=== PATIENT | male | born 1960 | race Hispanic/Latino ===

== ENCOUNTER 2019-01-05 10:46 | Emergency (ER) | payer BC ==
[2019-01-05 11:59] LABS: Absolute Lymphocytes (CBC) 2.4 K/uL (0.7-4.9); Basophils % 0.6 % (0-1.3); Hematocrit 37.1 % (39.6-49.0); Lymphocytes % 25.9 % (15.3-44.8); MPV 7.8 fL (7.6-11.3)
[2019-01-05 12:13] LABS: ALT/SGPT 46 U/L (12-78); AST/SGOT 29 U/L (15-37); Albumin 3.7 g/dL (3.4-5.0); Alkaline Phosphatase 78 U/L (45-117); BUN Blood Urea Nitrogen 15 mg/dL (7-18); Bicarbonate 27 mmol/L (21-32); Bilirubin Direct < 0.1 mg/dL (0-0.2); Bilirubin Total 0.3 mg/dL (0.2-1.0); Glucose Level 89 mg/dL (74-106); NT PRO-BNP 476 pg/mL (<125); Potassium 3.8 mmol/L (3.5-5.1); Protein, Total 7.4 g/dL (6.4-8.2); Sodium Level 141 mmol/L (136-145); Troponin (Emerg Dept Use Only) < 0.02 ng/mL (0.0-0.045)
--- NOTE | 2019-01-05 12:31 | ER ---
Nurse's Notes [facility] Name: Daniel Meneses Jr Age: 58 yrs Sex: Male : 1960 Arrival Date: 01/05/2019 Time: 10:47 Bed 8 Private MD: Dinora Mathur H Diagnosis: Chest pain, unspecified Presentation: 01/05 11:17 Presenting complaint: Anterior chest pain x 3 days. Pain is worse with movement and hb deep breathing. Denies cough/SOB/fever. Transition of care: patient was not received from another setting of care. Onset of symptoms was January 03, 2019. Risk Assessment: Do you want to hurt yourself or someone else? Patient reports no desire to harm self or others. Care prior to arrival: None. 11:17 Method Of Arrival: Ambulatory hb 11:17 Acuity: [place] 3 hb 12:51 Initial Sepsis Screen: Does the patient meet any 2 criteria? No. Patient's initial bp sepsis screen is negative. Does the patient have a suspected source of infection? No. Patient's initial sepsis screen is negative. Triage Assessment: 11:32 General: Appears in no apparent distress. comfortable, Behavior is calm, cooperative, bp appropriate for age. Pain: Complains of pain in chest. EENT: No deficits noted. Neuro: No deficits noted. Cardiovascular: Rhythm is sinus bradycardia. Respiratory: No deficits noted. GI: No signs and/or symptoms were reported involving the gastrointestinal system. : No signs and/or symptoms were reported regarding the genitourinary system. Derm: No deficits noted. Musculoskeletal: No deficits noted. Historical: - Allergies: 11:23 Iodine; hb - Home Meds: 11:23 lisinopril Oral [Active]; Atenolol Oral [Active]; hb - Immunization history:: Adult Immunizations up to date. - Social history:: Smoking status: Patient/guardian denies using tobacco. - Ebola Screening: : No symptoms or risks identified at this time. - Family history:: not pertinent. - Hospitalizations: : No recent hospitalization is reported. Screenin:33 Abuse screen: Denies threats or abuse. Denies injuries from another. Nutritional bp screening: No deficits noted. Tuberculosis screening: No symptoms or risk factors identified. Fall Risk None identified. Assessment: 11:33 General: SEE TRIAGE NOTE. bp 12:27 Reassessment: PT RETURNED FROM RADIOLOGY. ALL CURRENT ORDERS COMPLETED. bp 12:48 Reassessment: PT D/C HOME AMBULATORY WITH FAMILY, DX WITH UNSPECIFIC CHEST PAIN. bp Vital Signs: 11:23 BP 188 / 82; Pulse 56; Resp 16; Temp 98.8; Pulse Ox 100% on R/A; Weight 79.83 kg; hb Height 5 ft. 8 in. (172.72 cm); Pain 8/10; 12:28 BP 126 / 74; Pulse 52; Resp 16; Pulse Ox 100% ; bp 11:23 Body Mass Index 26.76 (79.83 kg, 172.72 cm) hb ED Course: 10:47 Patient arrived in ED. as 10:48 Dinora Mathur DO is Private Physician. as 11:23 Triage completed. hb 11:23 Arm band placed on. hb 11:26 Himanshu Dhillon MD is Attending Physician. rn 11:32 Danilo Strickland RN is Primary Nurse. bp 11:33 Patient has correct armband on for positive identification. Bed in low position. Call bp light in reach. Side rails up X2. satellite project site monitor on. Pulse ox on. NIBP on. 11:46 Inserted saline lock: 20 gauge in right forearm, using aseptic technique. Patient bp maintains SpO2 saturation greater than 95% on room air. 11:51 XRAY Chest Pa And Lat (2 Views) In Process Unspecified. EDMS 12:50 No provider procedures requiring assistance completed. IV discontinued, intact, bp bleeding controlled, No redness/swelling at site. Pressure dressing applied. Administered Medications: 12:40 Drug: TORadol - Ketorolac 15 mg Route: IVP; Site: right forearm; bp 12:43 Follow up: Response: Medication administered at discharge. bp Outcome: 12:30 Discharge ordered by . rn 12:50 Discharged to home ambulatory, with family. bp 12:50 Condition: stable 12:50 Discharge instructions given to patient, Instructed on discharge instructions, follow up and referral plans. Demonstrated understanding of instructions, follow-up care. 12:51 Patient left the ED. bp Signatures: Dispatcher [employer] EDMS Shey Hanson as Himanshu Dhillon MD MD rn Baxter, Heather, RN RN Danilo Strickland RN RN bp
--- NOTE | 2019-01-05 12:32 | EDPHYS ---
Physician Documentation [facility] Name: Daniel Meneses Jr Age: 58 yrs Sex: Male : 1960 Arrival Date: 01/05/2019 Time: 10:47 Bed 8 Private MD: Dinora Mathur H ED Physician Himanshu Dhillon HPI: 01/05 11:57 This 58 yrs old Male presents to ER via Ambulatory with complaints of Chest rn Pain. 11:57 The patient or guardian reports chest pain that is located primarily in the anterior rn chest wall. The patient or guardian reports chest pain that is located primarily in the anterior chest wall, bilaterally. Onset:. 11:57 Onset: 3 day(s) ago. The chest pain is described as sharp, stabbing. Duration: The rn patient or guardian reports multiple episodes, that are intermittent. Modifying factors: The symptoms are alleviated by nothing. the symptoms are aggravated by breathing, deep breath, movement, palpation of area, twisting torso. Severity of pain: At its worst the pain was mild in the emergency department the pain has improved. The patient has not experienced similar symptoms in the past. Reports bilateral anterior chest pain, sharp/stabbing, non-radiating, intermittent when moves/twists/deep breath/palpates chest wall. Improved a little with 800mg ibuprofen. Reports recently here for abd pain and said gallbladder and tests normal. 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 . Historical: - Allergies: 11:23 Iodine; hb - Home Meds: 11:23 lisinopril Oral [Active]; Atenolol Oral [Active]; hb - Immunization history:: Adult Immunizations up to date. - Social history:: Smoking status: Patient/guardian denies using tobacco. - Ebola Screening: : No symptoms or risks identified at this time. - Family history:: not pertinent. - Hospitalizations: : No recent hospitalization is reported. ROS: 11:57 Constitutional: Negative for fever, chills, and weight loss, Eyes: Negative for injury, rn pain, redness, and discharge, Cardiovascular: Negative for palpitations, and edema, Respiratory: Negative for shortness of breath, cough, wheezing Abdomen/GI: Negative for abdominal pain, nausea, vomiting, diarrhea, and constipation, MS/Extremity: Negative for injury and deformity, Skin: Negative for injury, rash, and discoloration, Neuro: Negative for headache, weakness, numbness, tingling, and seizure. Exam: 11:57 Constitutional: This is a well developed, well nourished patient who is awake, alert, rn and in no acute distress. Head/Face: Normocephalic, atraumatic. ENT: MMM Cardiovascular: Regular rate and rhythm. No pulse deficits. Respiratory: Lungs have equal breath sounds bilaterally, clear to auscultation. No increased work of breathing, no retractions or nasal flaring. Abdomen/GI: soft, non-tender MS/ Extremity: Pulses equal, no cyanosis. Neurovascular intact. Full, normal range of motion. Equal circumference. Neuro: Awake and alert, GCS 15, oriented to person, place, time, and situation. Vital Signs: 11:23 BP 188 / 82; Pulse 56; Resp 16; Temp 98.8; Pulse Ox 100% on R/A; Weight 79.83 kg; hb Height 5 ft. 8 in. (172.72 cm); Pain 8/10; 12:28 BP 126 / 74; Pulse 52; Resp 16; Pulse Ox 100% ; bp 11:23 Body Mass Index 26.76 (79.83 kg, 172.72 cm) hb MDM: 11:26 Patient medically screened. rn 12:29 Differential diagnosis: acute myocardial infarction, acute pericarditis, coronary rn artery disease chest wall pain, costochondritis, gastroesophageal reflux disease (GERD), pericarditis, pleurisy, pneumothorax. Data reviewed: vital signs, nurses notes, lab test result(s), EKG, radiologic studies, plain films, and as a result, I will discharge patient. Test interpretation: by ED physician or midlevel provider: ECG, plain radiologic studies, CXR neg for pneumothorax/infiltrate. Counseling: I had a detailed discussion with the patient and/or guardian regarding: the historical points, exam findings, and any diagnostic results supporting the discharge/admit diagnosis, lab results, radiology results, the need for outpatient follow up, to return to the emergency department if symptoms worsen or persist or if there are any questions or concerns that arise at home. Special discussion: Based on the patient's history, exam, and Dx evaluation, there is no indication for emergent intervention or inpatient Tx. It is understood by the patient/guardian that if the Sx's persist or worsen they need to return immediately for re-evaluation. I discussed with the patient/guardian in detail that at this point there is no indication for admission to the hospital. It is understood, however, that if the symptoms persist or worsen the patient needs to return immediately for re-evaluation. 01/05 11:35 Order name: Basic Metabolic Panel; Complete Time: 12:18 rn 01/05 11:35 Order name: CBC with Diff; Complete Time: 12:18 rn 01/05 11:35 Order name: LFT's; Complete Time: 12:18 rn 01/05 11:35 Order name: NT PRO-BNP; Complete Time: 12:18 rn 01/05 11:35 Order name: Troponin (emerg Dept Use Only); Complete Time: 12:18 rn 01/05 11:35 Order name: XRAY Chest Pa And Lat (2 Views) rn 01/05 11:35 Order name: EKG; Complete Time: 11:36 rn 01/05 11:35 Order name: Cardiac monitoring; Complete Time: 11:37 rn 01/05 11:35 Order name: EKG - Nurse/Tech; Complete Time: 11:36 rn 01/05 11:35 Order name: IV Saline Lock; Complete Time: 11:46 rn 01/05 11:35 Order name: Labs collected and sent; Complete Time: 11:46 rn 01/05 11:35 Order name: O2 Per Protocol; Complete Time: 11:36 rn 01/05 11:35 Order name: O2 Sat Monitoring; Complete Time: 11:36 rn Administered Medications: 12:40 Drug: TORadol - Ketorolac 15 mg Route: IVP; Site: right forearm; bp 12:43 Follow up: Response: Medication administered at discharge. bp Disposition: 01/05/19 12:30 Discharged to Home. Impression: Chest pain, unspecified. - Condition is Stable. - Discharge Instructions: Chest Wall Pain. - Medication Reconciliation Form, Thank You Letter, Antibiotic Education, Prescription Opioid Use form. - Follow up: Private Physician; When: As needed; Reason: Recheck today's complaints, Re-evaluation by your physician. - Problem is new. - Symptoms have improved. Signatures: Dispatcher [employer] EDHimanshu Head MD MD rn Moran, Tina, RN RN hb Em, Danilo, RN RN bp Corrections: (The following items were deleted from the chart) 12:00 11:57 Constitutional: Negative for fever, chills, and weight loss, Eyes: Negative for rn injury, pain, redness, and discharge, Cardiovascular: Negative for palpitations, and edema, Respiratory: Negative for shortness of breath, cough, wheezing, and pleuritic chest pain, Abdomen/GI: Negative for abdominal pain, nausea, vomiting, diarrhea, and constipation, MS/Extremity: Negative for injury and deformity, Skin: Negative for injury, rash, and discoloration, Neuro: Negative for headache, weakness, numbness, tingling, and seizure, rn 12:51 12:30 01/05/2019 12:30 Discharged to Home. Impression: Chest pain, unspecified. bp Condition is Stable. Forms are Medication Reconciliation Form, Thank You Letter, Antibiotic Education, Prescription Opioid Use. Follow up: Private Physician; When: As needed; Reason: Recheck today's complaints, Re-evaluation by your physician. Problem is new. Symptoms have improved. rn
[2019-01-05] MEDS ORDERED: KETOROLAC 30 MG/ML INJ ONE (12:40)
--- NOTE | 2019-01-05 13:10 | RAD REPORT ---
EXAM DESCRIPTION: Елена Dumont (2 Views)01/05/2019 11:51 am CLINICAL HISTORY: Chest pain COMPARISON: None FINDINGS: The lungs appear clear of acute infiltrate. The heart is normal size IMPRESSION: No acute abnormalities displayed
[2019-01-05 14:55] VITALS: O2SAT 100
[2019-01-05 14:56] VITALS: BP 126/74
[2019-01-05 15:02] VITALS: TEMP 97.8
--- NOTE | 2019-01-05 16:12 | EKG ---
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
== END 2019-01-05 12:51 | disposition home or self-care (01) ==
LOC: ER 10:46
DX: R07.9 Chest pain, unspecified (principal); Z88.8 Allergy status to other drugs, medicaments and biological substances
CPT/HCPCS: 36415; 71046; 80048; 80076; 83880; 84484; 85025; 93005; 96374; 99285

== ENCOUNTER 2022-07-09 07:06 | Emergency (ER) | payer BC ==
--- OUTSIDE RECORDS SUMMARY | 2022-07-09 07:08 | XMS REPORT | Continuity of Care Document ---
:1960 Author Organization [facility] t Address [address] [place] [id number] Care Team Providers Name Role Phone COLBY DAVIS Primary Care Physician Unavailable ADEOLA MANUEL Attending Clinician Unavailable Payers Payer Name Policy Type Policy Number Effective Date Expiration Date S jaleel [facility] [id number] 00:00:00 Problems This patient has no known problems. Allergies, Adverse Reactions, Alerts Allergy Allergy Status Severity Reaction(s) Onset Inactive Treating Comm ents Source Name Type Date Date Clinician NO KNOWN Drug Active [facility] ALLERGIE [facility] Medications This patient has no known medications. Procedures This patient has no known procedures. Encounters Start End Encounter Admission Attending Care Care Encounter Source Date/Time Date/Time Type Type Clinicians Facility Department ID 2021-04-25 2021-04-25 Outpatient R CARMEN MANUEL [facility] [id number] 14:00:00 14:42:28 ADEOLA [facility] Results This patient has no known results.
[2022-07-09] MEDS ORDERED: NA CHLORIDE 0.9% 1,000 ML ONE (07:37)
[2022-07-09] MEDS ORDERED: KETOROLAC 30 MG/ML INJ ONE (07:37)
[2022-07-09 07:39] LABS: Absolute Lymphocytes (CBC) 2.8 K/uL (0.7-4.9); Hematocrit 40.5 % (39.6-49.0); Lymphocytes % 34.5 % (15.3-44.8); MCV 89.1 fL (80-100); MPV 7.2 fL (7.6-11.3); RBC Red Blood Cell Count 4.54 M/uL (4.33-5.43)
[2022-07-09 07:53] LABS: Potassium 3.8 mEq/L (3.5-5.1)
--- NOTE | 2022-07-09 07:57 | RAD REPORT ---
EXAM DESCRIPTION: CTAbdomen Pelvis Wo Contrast - 07/09/2022 7:44 am CLINICAL HISTORY: left flank pain COMPARISON: No comparisons TECHNIQUE: CT of the abdomen and pelvis was performed. All CT scans are performed using dose optimization technique as appropriate and may include automated exposure control or mA/KV adjustment according to patient size. FINDINGS: Lower chest: Circumferential thickened distal esophagus. Liver: Hepatic steatosis Biliary: No biliary ductal dilatation. Stomach: No significant focal abnormality. Duodenum: No significant focal abnormality. Pancreas: No significant abnormality. Spleen: No significant abnormality. Adrenal: No suspicious lesions. Kidney/ureter: No hydronephrosis. No renal calculi. Right renal sinus cysts. Retroperitoneum: No retroperitoneal adenopathy. Vascular: No aneurysm. Atherosclerosis Bowel: No significant focal abnormality. Peritoneum: No ascites or free air. Small fat containing inguinal hernias. Bladder: Grossly unremarkable. Reproductive: Prostatomegaly . Prostate measures 5.7 cm in transverse dimension. Bones: No acute fracture. Other: n/a IMPRESSION: No acute intra-abdominal or pelvic finding. No urinary tract calculi identified. Normal appendix.
[2022-07-09 08:33] LABS: Specific Gravity 1.019 (1.005-1.030); Urine Bilirubin NEGATIVE (Negative); Urine Blood Negative (Negative); Urine Clarity Clear (Clear); Urine Color Light-Yellow (Yellow); Urine Glucose NEGATIVE (Negative); Urine Protein NEGATIVE (Negative); Urine Urobilinogen Normal (Normal)
[2022-07-09] MEDS ORDERED: CYCLOBENZAPRINE 10 MG TAB ONE (09:01)
[2022-07-09] MEDS ORDERED: METHYLPREDNISOLONE 125 MG INJ ONE (09:01)
[2022-07-09] MEDS ORDERED: DIPHENHYDRAMINE 50 MG/ML VIAL ONE (09:02)
--- NOTE | 2022-07-09 09:37 | RAD REPORT ---
EXAM DESCRIPTION: RAD - Chest Single View - 07/09/2022 9:31 am CLINICAL HISTORY: any mediastinal widening COMPARISON: Chest Pa And Lat (2 Views) dated 01/05/2019 FINDINGS: Lines: None. Lungs: No evidence of edema or pneumonia. Pleural: No significant pleural effusions or pneumothorax. Cardiac: The heart size is within normal limits. Mediastinum: Within normal limits. Bones: No acute fractures. Other: None IMPRESSION: No acute cardiopulmonary disease.
--- NOTE | 2022-07-09 09:45 | ER ---
Nurse's Notes [facility] Name: Daniel Meneses Jr Age: 62 yrs Sex: Male : 1960 Arrival Date: 07/09/2022 Time: 07:06 Bed 5 Private MD: Dinora Mathur H Diagnosis: Low back pain Presentation: 07/09 07:19 Chief complaint: Patient states: Left flank pain since yesterday, dizziness yesterday. jl7 Coronavirus screen: At this time, the client does not indicate any symptoms associated with coronavirus-19. Ebola Screen: No symptoms or risks identified at this time. Initial Sepsis Screen: Does the patient meet any 2 criteria? No. Patient's initial sepsis screen is negative. Does the patient have a suspected source of infection? No. Patient's initial sepsis screen is negative. Risk Assessment: Do you want to hurt yourself or someone else? Patient reports no desire to harm self or others. Onset of symptoms was July 08, 2022. Care prior to arrival: None. 07:19 Method Of Arrival: Ambulatory [facility] 07:19 Acuity: [place] 3 jl7 Triage Assessment: 07:22 General: Appears in no apparent distress. uncomfortable, Behavior is calm, cooperative, jl7 appropriate for age. Pain: Complains of pain in left flank Pain currently is 8 out of 10 on a pain scale. at worst was 10 out of 10 on a pain scale. GI: Reports nausea. : Reports pain in left flank(s). Derm: Skin is pink, warm \T\ dry. Historical: - Allergies: 07:22 Iodine; jl7 - Home Meds: 07:22 Atenolol Oral [Active]; lisinopril Oral [Active]; jl7 - PMHx: 07:22 Hypertensive disorder; jl7 - Immunization history:: Adult Immunizations unknown. - Social history:: Smoking status: Patient denies any tobacco usage or history of. Screenin:30 [facility] ED Fall Risk Assessment (Adult) History of falling in the last 3 months, kc6 including since admission No falls in past 3 months (0 pts) Confusion or Disorientation No (0 pts) Intoxicated or Sedated No (0 pts) Impaired Gait No (0 pts) Mobility Assist Device Used No (0 pt) Altered Elimination No (0 pt) Score/Fall Risk Level 0 - 2 = Low Risk Oriented to surroundings, Maintained a safe environment, Educated pt \T\ family on fall prevention, incl call for assistance when getting out of bed, Assessed \T\ reinforced patient's understanding of fall precautions, Hourly rounding (assess needs \T\ fall precautionary measures) done. Abuse screen: Denies threats or abuse. Denies injuries from another. Nutritional screening: No deficits noted. Tuberculosis screening: No symptoms or risk factors identified. Assessment: 07:30 General: Appears in no apparent distress. comfortable, Behavior is calm, cooperative, kc6 appropriate for age. Pain: Complains of pain in back and left flank Pain does not radiate. Pain currently is 8 out of 10 on a pain scale. Neuro: Level of Consciousness is awake, alert, obeys commands, Oriented to person, place, time, situation, Appropriate for age. Cardiovascular: Capillary refill < 3 seconds. Respiratory: Airway is patent Trachea midline Respiratory effort is even, unlabored, Respiratory pattern is regular, symmetrical. GI: Bowel sounds present X 4 quads. Abd is soft and non tender X 4 quads. Reports nausea. : No signs and/or symptoms were reported regarding the genitourinary system. EENT: No signs and/or symptoms were reported regarding the EENT system. Derm: No signs and/or symptoms reported regarding the dermatologic system. Skin is intact, Skin is pink, warm \T\ dry. Musculoskeletal: No signs and/or symptoms reported regarding the musculoskeletal system. Circulation, motion, and sensation intact. Capillary refill < 3 seconds, Range of motion: intact in all extremities. 08:30 Reassessment: Patient appears in no apparent distress at this time. No changes from kc6 previously documented assessment. Patient and/or family updated on plan of care and expected duration. Pain level reassessed. Patient is alert, oriented x 3, equal unlabored respirations, skin warm/dry/pink. 09:27 Reassessment: Patient appears in no apparent distress at this time. No changes from kc6 previously documented assessment. Patient and/or family updated on plan of care and expected duration. Pain level reassessed. Patient is alert, oriented x 3, equal unlabored respirations, skin warm/dry/pink. Vital Signs: 07:19 BP 163 / 73; Pulse 71; Resp 17; Temp 98.8; Pulse Ox 100% ; Weight 79.83 kg; Height 5 jl7 ft. 8 in. ; Pain 8/10; 08:05 BP 153 / 77; Pulse 72; Resp 18 S; Pulse Ox 100% on R/A; kc6 09:27 BP 171 / 83; Pulse 52; Resp 19 S; Pulse Ox 100% on R/A; kc6 07:19 Body Mass Index 26.76 (79.83 kg, 172.72 cm) jl7 07:19 Pain Scale: Adult jl7 ED Course: 07:08 Patient arrived in ED. mr 07:09 Dinora Mathur DO is Private Physician. mr 07:10 Turner Valverde MD is Attending Physician. tiffanie 07:10 Attending Physician role handed off by Turner Valverde MD bs3 07:10 Abdullahi Wilson MD is Attending Physician. bs3 07:15 More Fitch, RN is Primary Nurse. kc6 07:22 Triage completed. jl7 07:22 Arm band placed on right wrist. jl7 07:29 Inserted saline lock: 20 gauge in right antecubital area, using aseptic technique. kc6 Blood collected. 07:30 Patient has correct armband on for positive identification. Placed in gown. Bed in low kc6 position. Call light in reach. Side rails up X 1. Adult w/ patient. 07:46 CT Abd/Pelvis - Without Contrast In Process Unspecified. EDMS 09:33 Chest Single View XRAY In Process Unspecified. EDMS 09:44 Dinora Mathur DO is Referral Physician. bs3 10:05 No provider procedures requiring assistance completed. IV discontinued, intact, ld1 bleeding controlled, No redness/swelling at site. Administered Medications: 07:33 Drug: NS 0.9% IV 1000 ml Route: IV; Rate: 1000 ml; Site: right antecubital; kc6 08:37 Follow up: Response: No adverse reaction; IV Status: Completed infusion; IV Intake: kc6 1000ml 07:33 Drug: Ketorolac IVP 15 mg Route: IVP; Site: right antecubital; kc6 08:37 Follow up: Response: No adverse reaction; Pain is unchanged, physician notified kc6 08:59 Drug: diphenhydrAMINE IVP 25 mg Route: IVP; Site: right antecubital; kc6 08:59 Drug: MethylPrednisoLONE IVP 125 mg Route: IVP; Site: right antecubital; kc6 08:59 Drug: Cyclobenzaprine PO 10 mg Route: PO; kc6 Medication: 10:05 VIS not applicable for this client. ld1 Intake: 08:37 IV: 1000ml; Total: 1000ml. kc6 Outcome: 09:45 Discharge ordered by . bs3 10:05 Discharged to home ambulatory. ld1 10:05 Condition: stable 10:05 Discharge instructions given to patient, Instructed on discharge instructions, follow up and referral plans. medication usage, Demonstrated understanding of instructions, follow-up care, medications, Prescriptions given X 1. 10:05 Patient left the ED. ld1 Signatures: Dispatcher [employer] EDMS Turner Valverde MD MD cha Rivera, Mary GarciaNoelle, RN RN jl7 Lory Obregon RN RN jose f1 More Fitch RN RN kc6 Abdullahi Wilson MD MD bs3 Corrections: (The following items were deleted from the chart) 08:37 08:05 BP 153 / 77; Pulse 47bpm; Resp 18bpm; Spontaneous; Pulse Ox 100% RA; kc6 kc6
--- NOTE | 2022-07-09 09:46 | EDPHYS ---
Physician Documentation [facility] Name: Daniel Meneses Jr Age: 62 yrs Sex: Male : 1960 Arrival Date: 07/09/2022 Time: 07:06 Bed 5 Private MD: Dinora Mathur H ED Physician Abdullahi Wilson HPI: 07/09 07:34 This 62 yrs old Male presents to ER via Ambulatory with complaints of Possible bs3 Kidney Stone. 07:34 62-year-old male history of hypertension history of kidney stone 20 years ago presents bs3 with left flank pain he notes that he thinks he had a small amount of pain yesterday with some nausea and dizziness however he did not think much of it at work and then today when he went to the bathroom at 3 AM had left flank pain that was sharp and nonradiating he took Advil with some relief it was originally it now it is an 8 out of 10 he denies any current nausea or vomiting no chest pain shortness of breath no numbness tingling or weakness in his extremities nothing makes the pain worse it is not positional however the Advil did help a little bit. Historical: - Allergies: 07:22 Iodine; jl7 - Home Meds: 07:22 Atenolol Oral [Active]; lisinopril Oral [Active]; jl7 - PMHx: 07:22 Hypertensive disorder; jl7 - Immunization history:: Adult Immunizations unknown. - Social history:: Smoking status: Patient denies any tobacco usage or history of. ROS: 07:34 Constitutional: Negative for fever, chills bs3 07:34 All other systems are negative. Exam: 07:34 Constitutional: This is a well developed, well nourished patient who is awake, alert, bs3 and in no acute distress. Head/Face: Normocephalic, atraumatic. Eyes: Pupils equal round and reactive to light, extra-ocular motions intact. Lids and lashes normal. ENT: mmm, no posterior phyarngeal erythema Neck: Trachea midline, no thyromegaly, no neck stiffness Chest/axilla: Normal chest wall appearance and motion. Nontender with no deformity. No lesions are appreciated. Cardiovascular: Regular rate and rhythm with a normal S1 and S2. symmetric pulses in upper extremities Respiratory: Lungs have equal breath sounds bilaterally, clear to auscultation, no respiratory distress Abdomen/GI: Soft, non-tender, no rebound or guarding Back: Left CVA tenderness Skin: Warm, dry with normal turgor. Normal color with no rashes, no lesions, and no evidence of cellulitis. MS/ Extremity: Pulses equal, no cyanosis. Neurovascular intact. Full, normal range of motion. Neuro: Awake and alert, GCS 15, oriented to person, place, time, and situation. Cranial nerves II-XII grossly intact. Motor strength 5/5 in all extremities. Sensory grossly intact. Vital Signs: 07:19 BP 163 / 73; Pulse 71; Resp 17; Temp 98.8; Pulse Ox 100% ; Weight 79.83 kg; Height 5 jl7 ft. 8 in. ; Pain 8/10; 08:05 BP 153 / 77; Pulse 72; Resp 18 S; Pulse Ox 100% on R/A; kc6 09:27 BP 171 / 83; Pulse 52; Resp 19 S; Pulse Ox 100% on R/A; kc6 07:19 Body Mass Index 26.76 (79.83 kg, 172.72 cm) jl7 07:19 Pain Scale: Adult jl7 MDM: 07:10 Patient medically screened. tiffanie 07:34 Data reviewed: vital signs, nurses notes. ED course: Likely kidney stone given his bs3 history however if work-up is negative will consider other etiologies given this reported dizziness and nausea he has a normal neurologic exam currently on think is a posterior circulation stroke it may be possible that he has an aortic dissection or something else life-threatening although he has good symmetric pulses. 09:43 ED course: Work-up was inconclusive I had a very long shared decision-making bs3 conversation with the patient and his at bedside I was concerned about an aortic dissection his blood pressures were less than 20 difference in his bilateral arms and he has no neurologic symptoms however I have no other explanation for his pain that he states is still severe I recommended a CT with IV contrast which he refused he stated that 20 years ago he had a a big problem at an outside hospital and was unconscious for 3 days he states that he also has an allergy to shrimp I discussed that contrast is different today and I can pretreat him and treat any anaphylaxis he understood the risks and benefits including permanent disability and given the scenario while not a perfect test a D-dimer was ordered and a chest x-ray to look for mediastinal widening both of these were normal I gave the patient pretreatment for possible IV contrast allergy and he will return if his pain does not go away he has any numbness tingling weakness or any changes. 07/09 07:22 Order name: CBC with Diff; Complete Time: 08:00 bs3 07/09 07:22 Order name: BMP; Complete Time: 08:00 bs3 07/09 07:22 Order name: Urinalysis w/ reflexes; Complete Time: 08:47 bs3 07/09 08:49 Order name: D-Dimer; Complete Time: 09:32 bs3 07/09 07:22 Order name: CT Abd/Pelvis - Without Contrast; Complete Time: 08:00 bs3 07/09 08:49 Order name: Chest Single View XRAY bs3 Administered Medications: 07:33 Drug: NS 0.9% IV 1000 ml Route: IV; Rate: 1000 ml; Site: right antecubital; kc6 08:37 Follow up: Response: No adverse reaction; IV Status: Completed infusion; IV Intake: kc6 1000ml 07:33 Drug: Ketorolac IVP 15 mg Route: IVP; Site: right antecubital; kc6 08:37 Follow up: Response: No adverse reaction; Pain is unchanged, physician notified kc6 08:59 Drug: diphenhydrAMINE IVP 25 mg Route: IVP; Site: right antecubital; kc6 08:59 Drug: MethylPrednisoLONE IVP 125 mg Route: IVP; Site: right antecubital; kc6 08:59 Drug: Cyclobenzaprine PO 10 mg Route: PO; kc6 Disposition Summary: 07/09/22 09:45 Discharge Ordered Location: Home bs3 Problem: new bs3 Symptoms: have improved bs3 Condition: Fair(07/09/22 09:45) bs3 Diagnosis - Low back pain bs3 Followup: bs3 - With: Dinora Mathur DO - When: Today - Reason: Re-evaluation by your physician Discharge Instructions: - Discharge Summary Sheet bs3 - Acute Back Pain, Adult bs3 Forms: - Work release form eb - Medication Reconciliation Form bs3 - Thank You Letter bs3 - Antibiotic Education bs3 - Prescription Opioid Use bs3 Prescriptions: - Cyclobenzaprine 5 mg Oral Tablet - take 1 tablet by ORAL route 3 times per day As needed; 15 tablet; Refills: 0, bs3 Product Selection Permitted Signatures: Dispatcher [employer] EDTurner Jones MD MD cha Leal, Jahala, RN RN jl7 More Fitch RN RN kc6 Abdullahi Wilson MD MD bs3 Corrections: (The following items were deleted from the chart) 07:44 07:34 Constitutional: This is a well developed, well nourished patient who is awake, bs3 alert, and in no acute distress. Head/Face: Normocephalic, atraumatic. Eyes: Pupils equal round and reactive to light, extra-ocular motions intact. Lids and lashes normal. ENT: mmm, no posterior phyarngeal erythema Neck: Trachea midline, no thyromegaly, no neck stiffness Chest/axilla: Normal chest wall appearance and motion. Nontender with no deformity. No lesions are appreciated. Cardiovascular: Regular rate and rhythm with a normal S1 and S2. symmetric pulses in upper extremities Respiratory: Lungs have equal breath sounds bilaterally, clear to auscultation, no respiratory distress Abdomen/GI: Soft, non-tender, no rebound or guarding Back: Left CVA tenderness Skin: Warm, dry with normal turgor. Normal color with no rashes, no lesions, and no evidence of cellulitis. MS/ Extremity: Pulses equal, no cyanosis. Neurovascular intact. Full, normal range of motion. Neuro: Awake and alert, GCS 15, oriented to person, place, time, and situation. Cranial nerves II-XII grossly intact. Motor strength 5/5 in all extremities. Sensory grossly intact. bs3 09:45 09:45 Stable bs3 bs3
[2022-07-09 10:20] VITALS: TEMP 98.8; O2SAT 100
[2022-07-09 10:32] VITALS: BP 171/83
== END 2022-07-09 10:05 | disposition home or self-care (01) ==
LOC: ER 07:06
DX: M54.50 Low back pain, unspecified (principal); Z87.442 Personal history of urinary calculi; I10 Essential (primary) hypertension; Z91.048 Other nonmedicinal substance allergy status
CPT/HCPCS: 96361; 85025; 80048; 36415; 85379; 81003; 74176; 71045; 96375; 96374; 99284; J1200; J2930; J7030

== ENCOUNTER 2022-07-09 18:28 | Emergency (ER) | payer BC ==
--- OUTSIDE RECORDS SUMMARY | 2022-07-09 18:31 | XMS REPORT | Continuity of Care Document ---
:1960 Author Organization [facility] t Address [address] [facility] [address] [place] [id number] Care Team Providers Name Role Phone COLBY DAVIS Primary Care Physician Unavailable ADEOLA MANUEL Attending Clinician Unavailable Payers Payer Name Policy Type Policy Number Effective Date Expiration Date S jaleel [facility] [id number] 2015 00:00:00 Problems This patient has no known problems. Allergies, Adverse Reactions, Alerts Allergy Allergy Status Severity Reaction(s) Onset Inactive Treating Comm ents Source Name Type Date Date Clinician NO KNOWN Drug Active [facility] ALLERGIE Class [facility] Medications This patient has no known medications. Procedures This patient has no known procedures. Encounters Start End Encounter Admission Attending Care Care Encounter Source Date/Time Date/Time Type Type Clinicians Facility Department ID 2021-04-25 2021-04-25 Outpatient R CARMEN MANUEL [facility] [id number] [facility] 14:00:00 14:42:28 ADEOLA [facility] Results This patient has no known results.
[2022-07-09] MEDS ORDERED: METHYLPREDNISOLONE 125 MG INJ ONE (21:57)
[2022-07-09] MEDS ORDERED: DIPHENHYDRAMINE 50 MG/ML VIAL ONE (21:58)
[2022-07-09] MEDS ORDERED: NA CHLORIDE 0.9% 1,000 ML ONE (21:58)
[2022-07-09 22:06] LABS: Absolute Lymphocytes (CBC) 0.7 K/uL (0.7-4.9); Hematocrit 40.3 % (39.6-49.0); Lymphocytes % 7.8 % (15.3-44.8); MPV 7.3 fL (7.6-11.3); RBC Red Blood Cell Count 4.53 M/uL (4.33-5.43)
[2022-07-09 22:23] LABS: Potassium 3.8 mEq/L (3.5-5.1)
--- NOTE | 2022-07-09 22:58 | RAD REPORT ---
EXAM DESCRIPTION: CTAngio Aorta For Dissection - 07/09/2022 10:43 pm CLINICAL HISTORY: Flank pain COMPARISON: No comparisons TECHNIQUE: CTA of the chest, abdomen, and pelvis was performed. 3D maximum intensity pixel (MIP) rec onstructions were created All CT scans are performed using dose optimization technique as appropriate and may include automated exposure control or mA/KV adjustment according to patient size. FINDINGS: Thorax: Chest Wall: No abnormal mass Lungs: No acute abnormality. Pleura: No effusions or pneumothorax. Laurence/Mediastinum: No lymphadenopathy. Aorta/Pulmonary Arteries: Unremarkable Heart: Normal size. Abdomen/Pelvis: Liver: Hepatic steatosis Biliary: No biliary ductal dilatation. Stomach: No significant focal abnormality. Duodenum: No significant focal abnormality. Pancreas: No significant abnormality. Spleen: No significant abnormality. Adrenal: No suspicious lesions. Kidney/ureter: No hydronephrosis. No renal calculi. Right renal sinus cyst . Retroperitoneum: No retroperitoneal adenopathy. Vascular: No aneurysm. Mild atherosclerosis. Bowel: No significant focal abnormality. Normal appendix. Peritoneum: No ascites or free air. Bladder: Grossly unremarkable. Reproductive: Mild prostatomegaly. Bones: No acute fracture. Other: n/a IMPRESSION: No acute findings within the chest, abdomen, or pelvis. Specifically, no aortic aneurysm or dissection. Incidental findings as noted above .
[2022-07-09] MEDS ORDERED: HYDROCODONE/APAP 10/325 TAB ONE (23:56)
--- NOTE | 2022-07-09 23:58 | EDPHYS ---
Physician Documentation [facility] Name: Daniel Meneses Jr Age: 62 yrs Sex: Male : 1960 Arrival Date: 07/09/2022 Time: 18:28 Bed 2 Private MD: Dinora Mathur H ED Physician Maynor Sylvester HPI: 07/09 21:46 This 62 yrs old Male presents to ER via Ambulatory with complaints of kdr Abdominal Pain. 21:47 Patient complains of left flank pain since yesterday. Patient was seen here earlier kdr today. Patient at that time had a general evaluation done including radiographs which can be referenced in the records. No specific etiology for the pain was discovered at that time.. 22:00 Onset: The symptoms/episode began/occurred suddenly, at 03:30. Severity of symptoms: At kdr their worst the symptoms were moderate severe in the emergency department the symptoms are unchanged Pain is currently a 8 / 10. The patient has not experienced similar symptoms in the past. The patient has not recently seen a physician. Historical: - Allergies: 18:36 Iodine; ll1 - PMHx: 18:36 Hypertensive disorder; ll1 - Immunization history:: Adult Immunizations up to date. - Social history:: Smoking status: Patient denies any tobacco usage or history of. ROS: 22:00 Constitutional: Negative for fever, chills, and weight loss, Eyes: Negative for injury, kdr pain, redness, and discharge, ENT: Negative for injury, pain, and discharge, Neck: Negative for injury, pain, and swelling, Cardiovascular: Negative for chest pain, palpitations, and edema, Respiratory: Negative for shortness of breath, cough, wheezing, and pleuritic chest pain, Abdomen/GI: Negative for abdominal pain, nausea, vomiting, diarrhea, and constipation, : Negative for injury, bleeding, discharge, and swelling, MS/Extremity: Negative for injury and deformity, Skin: Negative for injury, rash, and discoloration, Neuro: Negative for headache, weakness, numbness, tingling, and seizure activity. 22:00 Back: Positive for flank pain, on the left. Exam: 22:00 Constitutional: This is a well developed, well nourished patient who is awake, alert, kdr and in no acute distress. Head/Face: Normocephalic, atraumatic. Eyes: Pupils equal round and reactive to light, extra-ocular motions intact. Lids and lashes normal. Conjunctiva and sclera are non-icteric and not injected. Cornea within normal limits. Periorbital areas with no swelling, redness, or edema. Neck: Trachea midline, no thyromegaly or masses palpated, and no cervical lymphadenopathy. Supple, full range of motion without nuchal rigidity, or vertebral point tenderness. No Meningismus. Chest/axilla: Normal chest wall appearance and motion. Nontender with no deformity. No lesions are appreciated. Cardiovascular: Regular rate and rhythm with a normal S1 and S2. No gallops, murmurs, or rubs. Normal PMI, no JVD. No pulse deficits. Respiratory: Lungs have equal breath sounds bilaterally, clear to auscultation and percussion. No rales, rhonchi or wheezes noted. No increased work of breathing, no retractions or nasal flaring. Abdomen/GI: Soft, non-tender, with normal bowel sounds. No distension or tympany. No guarding or rebound. No evidence of tenderness throughout. Back: No spinal tenderness. No costovertebral tenderness. Full range of motion. Skin: Warm, dry with normal turgor. Normal color with no rashes, no lesions, and no evidence of cellulitis. MS/ Extremity: Pulses equal, no cyanosis. Neurovascular intact. Full, normal range of motion. Neuro: Awake and alert, GCS 15, oriented to person, place, time, and situation. Cranial nerves II-XII grossly intact. Motor strength 5/5 in all extremities. Sensory grossly intact. Cerebellar exam normal. Normal gait. Psych: Awake, alert, with orientation to person, place and time. Behavior, mood, and affect are within normal limits. Vital Signs: 18:58 BP 186 / 98; Pulse 78; Resp 17; Temp 98.1; Pulse Ox 98% ; Weight 79.83 kg; Height 5 ft. ll1 8 in. ; Pain 8/10; 22:02 BP 172 / 86; Pulse 78; Resp 16; Pulse Ox 100% ; mw 22:49 BP 182 / 92; Pulse 97; Resp 16; Pulse Ox 100% ; vc1 23:45 BP 150 / 84; Pulse 69; Resp 16; Pulse Ox 96% ; vc1 18:58 Body Mass Index 26.76 (79.83 kg, 172.72 cm) ll1 18:58 Pain Scale: Adult ll1 MDM: 23:57 Patient medically screened. kdr 07/10 05:00 Data reviewed: vital signs, nurses notes, lab test result(s), radiologic studies. kdr 07/09 20:03 Order name: Basic Metabolic Panel; Complete Time: 23:05 kdr 07/09 20:03 Order name: CBC with Diff; Complete Time: 23:05 kdr 07/09 20:03 Order name: Troponin HS; Complete Time: 23:05 kdr 07/09 22:23 Order name: Angio Aorta For Dissection; Complete Time: 23:05 EDMS 07/09 20:03 Order name: Cardiac monitoring; Complete Time: 21:47 kdr 07/09 20:03 Order name: IV Saline Lock; Complete Time: 21:47 kdr 07/09 20:03 Order name: Labs collected and sent; Complete Time: 21:47 kdr 07/09 21:33 Order name: VS Recheck; Complete Time: 21:52 kdr Administered Medications: 07/09 21:51 Drug: MethylPrednisoLONE IVP 125 mg Route: IVP; Rate: 125 mg/min; Site: left antecubital; 07/10 00:10 Follow up: Response: No adverse reaction ll3 07/09 21:52 Drug: diphenhydrAMINE IVP 25 mg Route: IVP; Rate: 25 mg/min; Site: left antecubital; 07/10 00:10 Follow up: Response: No adverse reaction 3 07/09 23:51 Drug: [place] PO 10 mg-325 mg 1 tabs Route: PO; vc1 07/10 00:10 Follow up: Response: No adverse reaction; Marked relief of symptoms; Pain is decreased ll3 07/09 23:51 Not Given (Hemodynamic Parameters): cloNIDine PO 0.1 mg PO once vc1 Disposition Summary: 07/09/22 23:57 Discharge Ordered Location: Home kdr Problem: new kdr Symptoms: have improved kdr Condition: Stable kdr Diagnosis - Left flank pain kdr - Hypertensive heart disease without heart failure kdr Followup: kdr - With: Dinora Mathur, - When: 2 - 3 days - Reason: If symptoms return, Further diagnostic work-up, Recheck today's complaints, Continuance of care, Re-evaluation by your physician Discharge Instructions: - Discharge Summary Sheet kdr - Hypertension, Adult, [id number] kdr - Flank Pain, Adult, [id number] kdr Forms: - Medication Reconciliation Form kdr - Thank You Letter kdr - Prescription Opioid Use kdr Prescriptions: - acetaminophen-codeine 300-30 mg Oral tablet - take 1 tablet by ORAL route every 4-6 hours As needed; 16 tablet; Refills: 0, kdr Product Selection Permitted - Ibuprofen 600 mg Oral Tablet - take 1 tablet by ORAL route every 6 hours As needed take with food; 30 tablet; kdr Refills: 0, Product Selection Permitted Signatures: Dispatcher [employer] EDND Selina Vera RN RN Maynor Sylvester MD MD kdr Lewis, Lynsay, RN RN ll1 Mayra Noble RN RN vc1 Reyna Sevilla RN ll3 Corrections: (The following items were deleted from the chart) 21:55 21:47 Patient complains of left flank pain since yesterday. Patient was seen here kdr earlier today. Patient at that time had a general evaluation done including radiographs which can be referenced in the records. No specific etiology for the pain was discovered at that time. Since the patient had an iodine allergy, it was discussed with him that he would need to be premedicated prior to any further imaging studies that required contrast. Patient apparently declined at that time and stated he would return should his symptoms persist. In the intervening. He has had no increase or change in the symptoms but they have persisted. Patient presents back to the ED for further evaluation. Patient does not appear acutely ill or toxic at the time of initial evaluation.. kdr 22:23 20:04 Chest Angio+CT.RAD.BRZ ordered. EDND EDMS
--- NOTE | 2022-07-09 23:58 | ER ---
[facility]'s Notes [facility] Name: Daniel Meneses Jr Age: 62 yrs Sex: Male : 1960 Arrival Date: 07/09/2022 Time: 18:28 Bed 2 Private MD: Dinora Mathur H Diagnosis: Left flank pain;Hypertensive heart disease without heart failure Presentation: 07/09 18:58 Chief complaint: Patient states: Still having abd. pain. Was pre medicated for IV ll1 contrast earlier today. Coronavirus screen: Client denies travel out of the [place] in the last 14 days. At this time, the client does not indicate any symptoms associated with coronavirus-19. Ebola Screen: Patient denies travel to an Ebola-affected area in the 21 days before illness onset. Initial Sepsis Screen: Does the patient meet any 2 criteria? No. Patient's initial sepsis screen is negative. Does the patient have a suspected source of infection? Yes: Acute abdominal pain. Risk Assessment: Do you want to hurt yourself or someone else? Patient reports no desire to harm self or others. Onset of symptoms was July 09, 2022. 18:58 Method Of Arrival: Ambulatory ll1 18:58 Acuity: [place] 3 ll1 Historical: - Allergies: 18:36 Iodine; ll1 - PMHx: 18:36 Hypertensive disorder; ll1 - Immunization history:: Adult Immunizations up to date. - Social history:: Smoking status: Patient denies any tobacco usage or history of. Screenin/04 00:11 [facility] ED Fall Risk Assessment (Adult) History of falling in the last 3 months, ll3 including since admission No falls in past 3 months (0 pts) Confusion or Disorientation No (0 pts) Intoxicated or Sedated No (0 pts) Impaired Gait No (0 pts) Mobility Assist Device Used No (0 pt) Altered Elimination No (0 pt) Score/Fall Risk Level 0 - 2 = Low Risk Oriented to surroundings, Maintained a safe environment, Educated pt \T\ family on fall prevention, incl call for assistance when getting out of bed, Assessed \T\ reinforced patient's understanding of fall precautions. Abuse screen: Denies threats or abuse. Denies injuries from another. Nutritional screening: No deficits noted. Tuberculosis screening: No symptoms or risk factors identified. Assessment: 07/09 22:47 Reassessment: Back from CT. Pain: Complains of pain in mid back area Pain radiates to vc1 anterior aspect of left lateral abdomen Pain currently is 9 out of 10 on a pain scale. Quality of pain is described as sharp. GI: Bowel sounds Abd is soft and non tender. 23:45 Reassessment: No changes from previously documented assessment. Patient and/or family vc1 updated on plan of care and expected duration. Pain level reassessed. Patient is alert, oriented x 3, equal unlabored respirations, skin warm/dry/pink. Vital Signs: 18:58 BP 186 / 98; Pulse 78; Resp 17; Temp 98.1; Pulse Ox 98% ; Weight 79.83 kg; Height 5 ft. ll1 8 in. ; Pain 8/10; 22:02 BP 172 / 86; Pulse 78; Resp 16; Pulse Ox 100% ; mw 22:49 BP 182 / 92; Pulse 97; Resp 16; Pulse Ox 100% ; vc1 23:45 BP 150 / 84; Pulse 69; Resp 16; Pulse Ox 96% ; vc1 18:58 Body Mass Index 26.76 (79.83 kg, 172.72 cm) ll1 18:58 Pain Scale: Adult ll1 ED Course: 18:29 Patient arrived in ED. mr 18:29 Dinora Mathur DO is Private Physician. mr 18:37 Arm band placed on. ll1 18:59 Triage completed. ll1 19:13 Maynor Sylvester MD is Attending Physician. kdr 22:46 Mayra Noble, MAXIMO is Primary Nurse. vc1 22:47 Angio Aorta For Dissection In Process Unspecified. EDMS 23:56 Dinora Mathur DO is Referral Physician. kdr 07/10 00:11 No provider procedures requiring assistance completed. IV discontinued, intact, ll3 bleeding controlled, No redness/swelling at site. Pressure dressing applied. 00:12 Patient has correct armband on for positive identification. Bed in low position. Call ll3 light in reach. Side rails up X 1. Adult w/ patient. Administered Medications: 07/09 21:51 Drug: MethylPrednisoLONE IVP 125 mg Route: IVP; Rate: 125 mg/min; Site: left mw antecubital; 07/10 00:10 Follow up: Response: No adverse reaction 3 07/09 21:52 Drug: diphenhydrAMINE IVP 25 mg Route: IVP; Rate: 25 mg/min; Site: left antecubital; 07/10 00:10 Follow up: Response: No adverse reaction 3 07/09 23:51 Drug: [place] PO 10 mg-325 mg 1 tabs Route: PO; vc1 07/10 00:10 Follow up: Response: No adverse reaction; Marked relief of symptoms; Pain is decreased 3 07/09 23:51 Not Given (Hemodynamic Parameters): cloNIDine PO 0.1 mg PO once vc1 Medication: 07/10 00:12 VIS not applicable for this client. ll3 Outcome: 07/09 23:57 Discharge ordered by . [facility] 07/10 00:11 Discharged to home ambulatory, with significant other. ll3 Condition: stable Discharge instructions given to patient, significant other, Instructed on discharge instructions, follow up and referral plans. medication usage, Demonstrated understanding of instructions, follow-up care, medications, Prescriptions given X 2. 00:12 Patient left the ED. ll3 Signatures: Dispatcher [employer] EDMS Selnia Vera RN RN Maynor Sylvester MD MD kdr Rivera, Mary mr Lewis, Lynsay, RN RN ll1 Reyna Sevilla RN RN ll3 Mayra Noble RN RN vc1
[2022-07-10 01:27] VITALS: TEMP 98.1
[2022-07-10 01:32] VITALS: BP 150/84; O2SAT 96
== END 2022-07-10 00:12 | disposition home or self-care (01) ==
LOC: ER 18:28
DX: I11.9 Hypertensive heart disease without heart failure (principal); I10 Essential (primary) hypertension; Z91.048 Other nonmedicinal substance allergy status
CPT/HCPCS: 85025; 80048; 36415; 84484; 71275; 74175; 96375; 96374; 99284; Q9967; J1200; J2930; J7030

== ENCOUNTER 2022-11-27 10:17 | Emergency (ER) | payer BC ==
--- OUTSIDE RECORDS SUMMARY | 2022-11-27 10:20 | XMS REPORT | Continuity of Care Document ---
:1960 Author Organization [facility] t Address [address] [facility] [address] [place] [id number] Care Team Providers Name Role Phone COLBY DAVIS Primary Care Physician Unavailable ADEOLA MANUEL Attending Clinician Unavailable Payers Payer Name Policy Type Policy Number Effective Date Expiration Date S jaleel [facility] [id number] 2015 00:00:00 Problems This patient has no known problems. Allergies, Adverse Reactions, Alerts Allergy Allergy Status Severity Reaction(s) Onset Inactive Treating Comm ents Source Name Type Date Date Clinician NO KNOWN Drug Active [facility] ALLERGIE Class [facility] Medications This patient has no known medications. Procedures This patient has no known procedures. Encounters Start End Encounter Admission Attending Care Care Encounter Source Date/Time Date/Time Type Type Clinicians Facility Department ID 2021-04-25 2021-04-25 Outpatient R CARMEN MANUEL [facility] [id number] [facility] 14:00:00 14:42:28 ADEOLA [facility] Results This patient has no known results.
[2022-11-27] MEDS ORDERED: COLCHICINE 0.6 MG TAB ONE (10:54)
--- NOTE | 2022-11-27 12:01 | RAD REPORT ---
EXAM DESCRIPTION: RAD - Ankle Right 3 View - 11/27/2022 11:29 am CLINICAL HISTORY: PAIN COMPARISON: No comparisons FINDINGS/IMPRESSION: No acute fracture. No malalignment. No significant focal degenerative changes.
--- NOTE | 2022-11-27 12:59 | ER ---
Nurse's Notes [facility] Name: Daniel Meneses Jr Age: 62 yrs Sex: Male : 1960 Arrival Date: 11/27/2022 Time: 10:17 Bed 13 Private MD: Diagnosis: Gout, unspecified Presentation: 11/27 10:24 Chief complaint: Patient states: R ankle pain since Monday. Been treating it for gout ll1 but getting worse now. Coronavirus screen: Vaccine status: Patient reports receiving the 2nd dose of the covid vaccine. Client denies travel out of the [place] in the last 14 days. At this time, the client does not indicate any symptoms associated with coronavirus-19. Ebola Screen: Patient denies travel to an Ebola-affected area in the 21 days before illness onset. Initial Sepsis Screen: Does the patient meet any 2 criteria? No. Patient's initial sepsis screen is negative. Does the patient have a suspected source of infection? Yes: Bone or joint infection. Risk Assessment: Do you want to hurt yourself or someone else? Patient reports no desire to harm self or others. Onset of symptoms was November 22, 2022. 10:24 Acuity: [place] 3 ll1 10:24 Method Of Arrival: Wheelchair ll1 Triage Assessment: 10:29 General: Appears uncomfortable, Behavior is calm, cooperative, appropriate for age. ll1 Pain: Complains of pain in R ankle/foot Pain currently is 10 out of 10 on a pain scale. Musculoskeletal: Swelling present in R ankle Reports pain in R ankle/foot. Historical: - Allergies: 10:24 Iodine; ll1 - PMHx: 10:24 Hypertensive disorder; ll1 - PSHx: 10:24 None; ll1 - Immunization history:: Adult Immunizations up to date. - Social history:: Smoking status: Patient denies any tobacco usage or history of. Screenin:30 [facility] ED Fall Risk Assessment (Adult) Score/Fall Risk Level 0 - 2 = Low Risk. Abuse eh3 screen: Denies threats or abuse. Denies injuries from another. Nutritional screening: No deficits noted. Tuberculosis screening: No symptoms or risk factors identified. Assessment: 10:30 General: Appears in no apparent distress. uncomfortable, Behavior is calm, cooperative, eh3 appropriate for age. Pain: Complains of pain in right ankle. Neuro: Level of Consciousness is awake, alert, obeys commands, Oriented to person, place, time, situation. Cardiovascular: Capillary refill < 3 seconds Patient's skin is warm and dry. Respiratory: Airway is patent Respiratory effort is even, unlabored, Respiratory pattern is regular, symmetrical. GI: Abdomen is round non-distended. Derm: Skin is pink, warm \T\ dry. Musculoskeletal: Circulation, motion, and sensation intact. Swelling present in right ankle. Vital Signs: 10:24 BP 174 / 89; Pulse 57; Resp 16; Temp 99; Pulse Ox 100% ; Weight 79.83 kg; Height 5 ft. ll1 8 in. ; Pain 10/10; 10:24 Body Mass Index 26.76 (79.83 kg, 172.72 cm) ll1 10:24 Pain Scale: Adult ll1 ED Course: 10:20 Patient arrived in ED. ts1 10:22 Juli Blankenship [facility]-C [facility]. kb 10:22 Himanshu Dhillon MD is Attending Physician. kb 10:25 Triage completed. ll1 10:26 Arm band placed on Patient placed in an exam room, on a stretcher. ll1 10:30 Patient has correct armband on for positive identification. Bed in low position. Call eh3 light in reach. Side rails up X2. Provided Education on: Use of call grace. 10:32 Fabiola Matthews, RN is Primary Nurse. eh3 11:31 Ankle Right 3 View XRAY In Process Unspecified. EDMS Administered Medications: 10:44 Drug: Colcrys PO 1.2 mg PO once Route: PO; eh3 11:30 Follow up: Response: No adverse reaction 3 Outcome: 12:59 Discharge ordered by . kb 13:24 Discharged to home ambulatory, hb 13:24 Condition: stable 13:24 Discharge instructions given to patient, Instructed on discharge instructions, follow up and referral plans. medication usage, Demonstrated understanding of instructions, follow-up care, medications, Prescriptions given X 2, 13:25 Patient left the ED. hb Signatures: Dispatcher [employer] EDMS Juli Blankenship FNP-C FNP-Ckb Baxter, Heather, RN RN Dilip Esquivel RN RN [facility] Fabiola Matthews RN RN 3 [place], [place], PAS PAS ts1
--- NOTE | 2022-11-27 12:59 | EDPHYS ---
Physician Documentation [facility] Name: Daniel Meneses Jr Age: 62 yrs Sex: Male : 1960 Arrival Date: 11/27/2022 Time: 10:17 Bed 13 Private MD: ED Physician Himanshu Dhillon HPI: 11/27 17:52 This 62 yrs old Male presents to ER via Wheelchair with complaints of Ankle kb Swelling. 17:52 Patient reports pain, swelling, redness to right medial ankle that started 3 days ago. kb States it feels the same as previous gout attacks but is normal indomethacin is not working. Historical: - Allergies: 10:24 Iodine; ll1 - PMHx: 10:24 Hypertensive disorder; ll1 - PSHx: 10:24 None; ll1 - Immunization history:: Adult Immunizations up to date. - Social history:: Smoking status: Patient denies any tobacco usage or history of. ROS: 17:50 Constitutional: Negative for fever, chills, and weight loss, kb 17:50 MS/extremity: Positive for erythema, pain, swelling, tenderness, of the right ankle, 17:50 All other systems are negative, Exam: 17:50 Constitutional: This is a well developed, well nourished patient who is awake, alert, kb and in no acute distress. Head/Face: Normocephalic, atraumatic. ENT: Moist Mucous membranes Cardiovascular: Regular rate Respiratory: Respirations even and unlabored. No increased work of breathing. Talking in full sentences Skin: Warm, dry with normal turgor. Normal color. Neuro: Awake and alert, GCS 15, oriented to person, place, time, and situation. Moves all extremities. Normal gait. 17:50 Musculoskeletal/extremity: Extremities: grossly normal except: noted in the right ankle: erythema, pain, swelling, tenderness, ROM: intact in all extremities, Circulation is intact in all extremities. Sensation intact. Weight bearing: able to fully bear weight, Vital Signs: 10:24 BP 174 / 89; Pulse 57; Resp 16; Temp 99; Pulse Ox 100% ; Weight 79.83 kg; Height 5 ft. ll1 8 in. ; Pain 10/10; 10:24 Body Mass Index 26.76 (79.83 kg, 172.72 cm) ll1 10:24 Pain Scale: Adult ll1 MDM: 10:22 Patient medically screened. kb 17:51 Differential diagnosis: fracture, sprain, arthritis, gout, cellulitis. Data reviewed: kb vital signs, nurses notes. Counseling: I had a detailed discussion with the patient and/or guardian regarding the historical points, exam findings, and any diagnostic results supporting the discharge/admit diagnosis, radiology results, the need for outpatient follow up, a orthopedic surgeon, to return to the emergency department if symptoms worsen or persist or if there are any questions or concerns that arise at home. 11/27 10:30 Order name: Ankle Right 3 View XRAY; Complete Time: 12:02 kb Administered Medications: 10:44 Drug: Colcrys PO 1.2 mg PO once Route: PO; 3 11:30 Follow up: Response: No adverse reaction 3 Disposition: 11/28 09:59 Co-signature as Attending Physician, Himanshu Dhillon MD I reviewed the patient's care rn provided by the Advanced Practice Provider and agree with the diagnosis and treatment plan. Disposition Summary: 11/27/22 12:59 Discharge Ordered Notes: Location: Home kb Condition: Stable kb Diagnosis - Gout, unspecified kb Followup: kb - With: Emergency Department - When: As needed - Reason: Worsening of condition Followup: kb - With: Private Physician - When: 2 - 3 days - Reason: Recheck today's complaints, Continuance of care, Re-evaluation by your physician Discharge Instructions: - Discharge Summary Sheet kb - Gout, [id number] kb Forms: - Medication Reconciliation Form kb - Thank You Letter kb - Antibiotic Education kb - Prescription Opioid Use kb - Patient Portal Instructions kb - Leadership Thank You Letter kb - Work release form hb Prescriptions: - Cephalexin 500 mg Oral Capsule - take 1 capsule ORAL route every 8 hours for 10 days; 30 capsule; Refills: 0, kb Product Selection Permitted - Prednisone 20 mg Oral Tablet - take 1 tablet ORAL route once daily for 5 days; 5 tablet; Refills: 0, Product kb Selection Permitted Signatures: Dispatcher [employer] Juli Matias, TOMAC OVI-Himanshu Flores MD MD rn Lewis, Lynsay, RN RN 1 Fabiola Matthews RN RN 3
== END 2022-11-27 13:25 | disposition home or self-care (01) ==
LOC: ER 10:17
DX: M10.9 Gout, unspecified (principal)
CPT/HCPCS: 99283